=== PATIENT | female | born 1995 | race Caucasian/White ===

== ENCOUNTER 2019-03-12 04:44 | Emergency (ER) | payer BC, OTHER | END 2019-03-12 05:50 | disposition home or self-care (01) | LOC: ERS 04:44 | DX: S01.85XA Open bite of other part of head, initial encounter (principal); S01.81XA Laceration without foreign body of other part of head, initial encounter; F17.210 Nicotine dependence, cigarettes, uncomplicated; W54.0XXA Bitten by dog, initial encounter | CPT/HCPCS: 12014 ==

== ENCOUNTER 2019-03-19 15:17 | Emergency (ER) | payer OTHER | END 2019-03-19 15:34 | disposition home or self-care (01) | LOC: ERS 15:17 | DX: S01.112D Laceration without foreign body of left eyelid and periocular area, subsequent encounter (principal); F17.210 Nicotine dependence, cigarettes, uncomplicated; W54.0XXD Bitten by dog, subsequent encounter ==